=== PATIENT | male | born 1955 | race Caucasian/White ===

== ENCOUNTER → 2020-05-26 | Day surgery (SDC) | payer MEDICARE, OTHER ==
[~2020-05-26] MED LIST: ACETAMINOPHEN1 EACH PO; ACETAMINOPHEN500 M1 PO; ASPIRIN EC81 MG PO; CLARITIN10 MG PO; EUTHYROX175 MCG PO; FENOFIBRATE160 MG PO; FLOMAX0.4 MG PO; IPRAT-ALBUT 0.5-3 ML INH; LIPITOR40 MG PO; MUCINEX 600MG600 MG PO; ONE-DAILY MULT1 EACH PO; PANTOPRAZOLE SO40 MG PO; PAXIL20 MG PO; PROSCAR5 MG PO; ROPINIROLE HCL0.5 MG PO; SODIUM BICARBO650 M1 PO
== END | disposition home or self-care (01) ==
LOC: FAS 08:18
DX: K29.50 Unspecified chronic gastritis without bleeding (principal); J31.2 Chronic pharyngitis; K44.9 Diaphragmatic hernia without obstruction or gangrene; R63.4 Abnormal weight loss; D73.89 Other diseases of spleen; I12.9 Hypertensive chronic kidney disease with stage 1 through stage 4 chronic kidney disease, or unspecified chronic kidney disease; N18.30 Chronic kidney disease, stage 3 unspecified; K21.9 Gastro-esophageal reflux disease without esophagitis; E03.9 Hypothyroidism, unspecified; M19.90 Unspecified osteoarthritis, unspecified site; N40.0 Benign prostatic hyperplasia without lower urinary tract symptoms; J44.9 Chronic obstructive pulmonary disease, unspecified; E78.1 Pure hyperglyceridemia; G20 Parkinson's disease; Z68.28 Body mass index [BMI] 28.0-28.9, adult; Z85.21 Personal history of malignant neoplasm of larynx; Z87.891 Personal history of nicotine dependence; Z79.82 Long term (current) use of aspirin; Z79.899 Other long term (current) drug therapy; Z88.5 Allergy status to narcotic agent
CPT/HCPCS: 88305; J2250; J7120